=== PATIENT | female | born 1990 | race Caucasian/White ===

== ENCOUNTER 2017-07-28 17:45 | Emergency (ER) | payer MEDICAID ==
--- NOTE | 2017-07-28 18:44 | EDPHY ---
H & P Stated Complaint: Rolled L ankle HPI/ROS: HPI CHIEF COMPLAINT: [ ] HISTORY OF PRESENT ILLNESS: [Need 4: Location, Duration, Severity, Quality, Context, Timing Modifying Factors, Associated S&S] Past Medical History: Past Surgical History: Social History: Family History: ROS REVIEW OF SYSTEMS: A comprehensive 10 point review of systems is otherwise negative aside from elements mentioned in the history of present illness. Exam Constitutional triage nursing summary reviewed, vital signs reviewed, awake/ alert. Eyes normal conjunctivae and sclera, EOMI, PERRLA. HENT normal inspection, atraumatic, moist mucus membranes, no epistaxis, neck supple/ no meningismus, no raccoon eyes. Respiratory clear to auscultation bilaterally, normal breath sounds, no respiratory distress, no wheezing. Cardiovascular rate normal, regular rhythm, no murmur, no edema, distal pulses normal. Gastrointestinal soft, non-tender, no rebound, no guarding, normal bowel sounds, no distension, no pulsatile mass. Genitourinary no CVA tenderness. Musculoskeletal no midline vertebral tenderness, full range of motion, no calf swelling, no tenderness of extremities, no meningismus, good pulses, neurovascularly intact. Skin pink, warm, & dry, no rash, skin atraumatic. Neurologic awake, alert and oriented x 3, AAOx3, moves all 4 extremities equally, motor intact, sensory intact, CN II-XII intact, normal cerebellar, normal vision, normal speech. Psychiatric normal mood/affect. Heme/Lymph/Immune no lymphadenopathy. Differential Diagnosis: Medical Decision Making: Re-evaluation: Source: Patient - Personal History LMP (Females 10-55): IUD In Place Current Tetanus Diphtheria and Acellular Pertussis (TDAP): Yes - Medical/Surgical History Other PMH: healthy - Social History Smoking Status: Never smoked Constitutional: Initial Vital Signs Temperature (C) 36.6 C 07/28/17 17:56 Heart Rate 92 07/28/17 17:56 Respiratory Rate 18 07/28/17 17:56 Blood Pressure 156/99 H 07/28/17 17:56 O2 Sat (%) 98 07/28/17 17:56 O2 Delivery Mode Room Air Allergies/Adverse Reactions: No Known Allergies Allergy (Unverified 07/28/17 17:55) Home Medications: Medication Instructions Recorded NK [No Known Home Meds] 07/28/17 Medical Decision Making - Diagnostics Imaging Results: Imaging Impressions Ankle X-Ray 07/28/17 17:58 Impression: Nothing acute identified. Departure - Departure Referrals: NONE *PRIMARY CARE P,. [Primary Care Provider] - As per Instructions
[2017-07-28] MEDS ORDERED: OXYCODONE/APAP 5/325 TAB PO ONE (18:47)
--- NOTE | 2017-07-28 18:52 | EDPHY ---
H & P Stated Complaint: Rolled L ankle Time Seen by Provider: 07/28/17 18:48 HPI/ROS: HPI: This is a 26-year-old female who presents with Chief Complaint: Left ankle injury Location: Left lateral Quality: Injury Duration: 3 hours prior to arrival Signs and Symptoms: No bleeding, no radiation, no numbness, no weakness, no tingling, + decreased range of motion, + swelling, + pain Timing: Sudden Severity: Moderate Context: Patient has an IUD in place and presents with complaints of stepping off the curb and accidentally rolling her left ankle with immediate pain that is constant and moderate in nature that is worsened with weight-bearing. She has applied ice and has noticed that the swelling has continued to worsen. She denies any paresthesias/skin color changes. No prior history of ankle sprains. She did not hit her head or lose consciousness. Modifying Factors: Ice application Comment: ROS: see HPI Constitutional: No fever, no chills, no weight loss Eyes: No blurred vision Respiratory: No shortness of breath, no cough Cardiovascular: No chest pain Gastrointestinal: No nausea, no vomiting no diarrhea Genitourinary: No dysuria Extremities: No myalgias Neurologic: No weakness, no numbness Skin: No rashes Hematologic: No bruising, no bleeding MEDICAL/SURGICAL/SOCIAL HISTORY: Medical history: Generally healthy. Does not take any regular medications. Surgical history: Denies Social history: CONSTITUTIONAL: Pleasant overweight white female, awake and alert, no obvious distress HEENT: Atraumatic and normocephalic. NECK: supple, no midline tenderness, flexion 45 degrees, extension 45 degrees, right and left lateral flexion 45 degrees. No meningismus. Cardiovascular: Normal S1/S2, regular rate, regular rhythm, without murmur rub or gallop. PULMONARY/CHEST: Symmetrical and nontender. no crepitus. Clear to auscultation bilaterally. Good air movement. No accessory muscle usage. ABDOMEN: Soft, nondistended, nontender, no ecchymosis. PELVIC: no pain with rocking; bilateral hips flexion 125 degrees, extension 30 degrees, with no pain internal rotation and no pain external rotation. BACK: No midline tenderness, no paraspinous spasm, deep tendon reflexes 2/2, no pain with straight leg raise EXTREMITIES: 2/2 DP and PT pulses, LEFT Ankle; Plantar flexion to 50, dorsiflexion to 20. Foot inversion to 35 degree. + moderate tenderness with palpation and swelling. Mild tenderness Anterior talofibular ligament. Mild to moderate swelling and tenderness with palpation Calcaneofibular ligament, no tenderness posterior talofibular ligament, no tenderness posterior inferior tibiofibular ligament. Achilles tendon intact. no deformities, no clubbing, no cyanosis or edema. NEUROLOGICAL: no focal neuro deficits. GCS 15. Light touch sensation intact. SKIN: Warm and dry, no erythema. no rash. Good capillary refill. Source: Patient Exam Limitations: No limitations - Personal History LMP (Females 10-55): IUD In Place Current Tetanus Diphtheria and Acellular Pertussis (TDAP): Yes - Medical/Surgical History Other PMH: healthy - Social History Smoking Status: Never smoked Constitutional: Initial Vital Signs Temperature (C) 36.6 C 07/28/17 17:56 Heart Rate 92 07/28/17 17:56 Respiratory Rate 18 07/28/17 17:56 Blood Pressure 156/99 H 07/28/17 17:56 O2 Sat (%) 98 07/28/17 17:56 O2 Delivery Mode Room Air Allergies/Adverse Reactions: No Known Allergies Allergy (Unverified 07/28/17 17:55) Home Medications: Medication Instructions Recorded NK [No Known Home Meds] 07/28/17 Medical Decision Making - Diagnostics Imaging Results: Imaging Impressions Ankle X-Ray 07/28/17 17:58 Impression: Nothing acute identified. Procedures: Procedure: Splint placement. A left ankle stirrup splint was applied by the Emergency Room pest control chemical technician After application of the splint I returned and re-examined the patient. The splint was adequately immobilizing the joint and distal to the splint the patient's circulation and sensation was intact. ED Course/Re-evaluation: Left ankle x-ray ordered Given p.o. [place] with adequate relief of pain X-ray my read via PAC shows no acute fracture, dislocation does show some mild lateral soft tissue swelling consistent with a sprain Patient placed in air stirrup splint and given crutches with toe-touch weight- bearing initially and advance as tolerated Advised rice therapy and orthopedic follow-up No signs of neurovascular compromise/tenting of skin/compartment syndrome/ extremities and joints examined above and below area of concern and are neurovascularly intact. Differential Diagnosis: Differential diagnosis includes but is not limited to fibular fracture, talus fracture, tibia fracture contusion, sprain. Departure - Departure Disposition: Home, Routine, Self-Care Clinical Impression: Moderate left ankle sprain Qualifiers: Encounter type: initial encounter Qualified Code(s): S93.402A - Sprain of unspecified ligament of left ankle, initial encounter Condition: Good Instructions: Ankle Sprain (ED), Ankle Stirrup Splint (ED) Additional Instructions: Wear the air splint while out of bed and use crutches to aid in ambulation. Start with toe-touch and then advance as tolerated; pain permitting. Take ibuprofen 600-800 mg every 8 hours with food as needed for pain and inflammation. Apply ice for 30 minutes at a time; 2-3 times per day for the next 1-2 days. Follow up with Orthopedics in 7-10 days at which time they will evaluate and recommend with you if conservative management versus surgery is indicated. The x-rays obtained in the emergency department today demonstrate no evidence of an obvious fracture. Sometimes fractures are not obvious on the initial set of x-rays performed in the ED. For this reason, you should have repeat x-rays performed in 7-10 days if you are having any pain exclude the possibility of an occult fracture. Referrals: Michael Mckinley MD [Medical Doctor] - As per Instructions
[2017-07-28 19:14] VITALS: BP 117/84; PULSE 89; RESP 12; TEMP 97.8; O2SAT 96
== END 2017-07-28 19:12 | disposition home or self-care (01) ==
DX: S93.402A Sprain of unspecified ligament of left ankle, initial encounter (principal); X50.9XXA Other and unspecified overexertion or strenuous movements or postures, initial encounter
CPT/HCPCS: L4350